=== PATIENT | male | born 1940 | race Caucasian/White ===

== ENCOUNTER 2019-10-03 06:03 | Emergency (ER) | payer MEDICARE, BC ==
[~2019-10-03] VITALS: Ht 175.3 cm; Wt 85.3 kg
[2019-10-03 06:07] VITALS: BP 120/72
[2019-10-03] MEDS ORDERED: ASA81BEC PO (06:11)
[2019-10-03] MEDS ORDERED: TRAMADOL 50 MG50 MG PO (06:11)
[2019-10-03] MEDS ORDERED: APAP650 PO (06:12)
[2019-10-03] MEDS ORDERED: AMARYL2 M1 PO (06:12)
== END 2019-10-03 07:00 | disposition home or self-care (01) ==
LOC: M.ERS 06:03
DX: R04.0 Epistaxis (principal); E11.9 Type 2 diabetes mellitus without complications; I10 Essential (primary) hypertension; Z85.118 Personal history of other malignant neoplasm of bronchus and lung